=== PATIENT | female | born 1960 | race Caucasian/White ===

== ENCOUNTER 2021-12-01 21:51 | Emergency (ER) | payer OTHER ==
[2021-12-01 22:19] VITALS: BP 115/70; PULSE 84; RESP 18; TEMP 98
--- NOTE | 2021-12-02 02:46 | ED ---
Psych HPI - General Source: patient, RN notes reviewed, old records reviewed Mode of arrival: ambulatory - History of Present Illness MD Complaint: suicidal ideation, feels depressed, altered mental status -: unknown Associated Psychiatric Symptoms: racing thoughts, auditory hallucinations Quality: getting worse Improves With: therapy Associated Symptoms: confusion Treatments Prior to Arrival: placed on mental health hold If Self Harm: admits thoughts of self harm <Aniket Novak - Last Filed: 12/02/21 02:44> - General Limitations: no limitations <Richmond Amato - Last Filed: 12/03/21 06:21> - General Chief Complaint: Psychiatric Symptoms Stated Complaint: Behavioral Issues Time Seen by Provider: 12/02/21 02:29 - History of Present Illness Initial Comments: 89 female DF for evaluation patient presents today for psychiatric evaluation. Patient is being combative with staff not reliable (Aniket Novak) This a 61-year-old female presents emergency department for psychiatric evaluation. Patient is from jail she states she's been at the jail for 2-3 months. Patient states his staff was making her angry states that she became "pissed off" states that she was yelling but was not aggressive towards staff. Patient denies being homicidal or suicidal as illicit drug use no alcohol abuse. Patient states that she has been here for several hours is unsure why she is here that she does not need psychiatric treatment. Patient has no physical complaints. (Richmond Amato) - Related Data Home Medications Medication Instructions Recorded Confirmed ARIPiprazole [Abilify] 10 mg PO BID@06,199912/02/21 12/02/21 Benztropine Mesylate [Cogentin] 1 mg PO BID@06,199912/02/21 12/02/21 FLUoxetine HCL [PROzac] 20 mg PO DAILY@59912/02/21 12/02/21 Levothyroxine Sodium [Synthroid] 175 mcg PO DAILY@59912/02/21 12/02/21 Rivaroxaban [Xarelto] 20 mg PO DAILY@17012/02/21 12/02/21 chlorproMAZINE [Thorazine] 100 mg PO HS@199912/02/21 12/02/21 traZODone HCL [Desyrel] 25 mg PO HS@199912/02/21 12/02/21 Allergies Allergy/AdvReac Type Severity Reaction Status Date / Time Sulfa (Sulfonamide Allergy Unknown Verified 12/02/21 11:32 Antibiotics) Review of Systems ROS Other: All systems not noted in ROS Statement are negative. <Aniket Novak - Last Filed: 12/02/21 02:44> ROS Other: All systems not noted in ROS Statement are negative. <Richmond Amato - Last Filed: 12/03/21 06:21> ROS Statement: Those systems with pertinent positive or pertinent negative responses have been documented in the HPI. Past Medical History Past Medical History: Unable to Obtain History of Any Multi-Drug Resistant Organisms: Unobtainable Past Surgical History: Unable to Obtain Past Psychological History: Unable to Obtain Smoking Status: Unknown if ever smoked Past Alcohol Use History: Unable to Obtain Past Drug Use History: Unable to Obtain <Aniket Novak - Last Filed: 12/02/21 02:44> General Exam Limitations: no limitations General appearance: alert, in no apparent distress Head exam: Present: atraumatic, normocephalic, normal inspection Eye exam: Present: normal appearance, PERRL, EOMI. Absent: scleral icterus, conjunctival injection, periorbital swelling ENT exam: Present: normal exam, mucous membranes moist Neck exam: Present: normal inspection. Absent: tenderness, meningismus, lymphadenopathy Respiratory exam: Present: normal lung sounds bilaterally. Absent: respiratory distress, wheezes, rales, rhonchi, stridor Cardiovascular Exam: Present: regular rate, normal rhythm, normal heart sounds. Absent: systolic murmur, diastolic murmur, rubs, gallop, clicks GI/Abdominal exam: Present: soft, normal bowel sounds. Absent: distended, tenderness, guarding, rebound, rigid Extremities exam: Present: normal inspection, full ROM, normal capillary refill. Absent: tenderness, pedal edema, joint swelling, calf tenderness Back exam: Present: normal inspection Neurological exam: Present: alert, oriented X3, CN II-XII intact Psychiatric exam: Present: normal affect, normal mood Skin exam: Present: warm, dry, intact, normal color. Absent: rash <Aniket Novak - Last Filed: 12/02/21 02:44> General appearance: alert, in no apparent distress Head exam: Present: atraumatic, normocephalic, normal inspection Eye exam: Present: normal appearance, PERRL, EOMI. Absent: scleral icterus, conjunctival injection, periorbital swelling ENT exam: Present: mucous membranes moist. Absent: normal exam, normal oropharynx (No dentition) Neck exam: Present: normal inspection. Absent: tenderness, meningismus, lymphadenopathy Respiratory exam: Present: normal lung sounds bilaterally. Absent: respiratory distress, wheezes, rales, rhonchi, stridor Cardiovascular Exam: Present: regular rate, normal rhythm, normal heart sounds. Absent: systolic murmur, diastolic murmur, rubs, gallop, clicks GI/Abdominal exam: Present: soft, normal bowel sounds. Absent: distended, tenderness, guarding, rebound, rigid Neurological exam: Present: alert, oriented X3, CN II-XII intact Psychiatric exam: Present: normal affect, normal mood Skin exam: Present: warm, dry, intact, normal color. Absent: rash <Richmond Amato - Last Filed: 12/03/21 06:21> Course <Aniket Novak - Last Filed: 12/02/21 02:44> Vital Signs 12/01/21 22:16 Temperature 98 F Pulse Rate 84 Respiratory 18 Rate Blood Pressure 115/70 O2 Sat by Pulse 97 Oximetry - Reevaluation(s) Reevaluation #1: 12/02/21 02:45 Attic record is reviewed 12/02/21 02:45 Medical clear for psychiatric evaluation (Aniket Novak) Medical Decision Making <Richmond Amato - Last Filed: 12/03/21 06:21> - Medical Decision Making Patient was evaluated by EPS will be discharged in stable condition patient is not suicidal or homicidal. Patient had an outburst anger and which she admits to that she was angry at staff. (Richmond Amato) Disposition <Aniket Novak - Last Filed: 12/02/21 02:44> Is patient prescribed a controlled substance at d/c from ED?: No <Richmond Amato - Last Filed: 12/03/21 06:21> Clinical Impression: Outbursts of anger Disposition: HOME SELF-CARE Condition: Stable Additional Instructions: Please return to the Emergency Department if symptoms worsen or any other concerns. Referrals: None,Stated [Primary Care Provider] - 1-2 days
== END 2021-12-02 04:15 | disposition home or self-care (01) ==
LOC: EEVIPCON 21:51 → EC 21:51
DX: R45.4 Irritability and anger (principal); Z88.2 Allergy status to sulfonamides
CPT/HCPCS: 82075; 99285

== ENCOUNTER 2021-12-05 14:36 | Emergency (ER) | payer MEDICARE, OTHER ==
[2021-12-05 15:00] VITALS: BP 144/76; PULSE 61; RESP 18; TEMP 97.6
--- NOTE | 2021-12-05 15:06 | ED ---
General Adult HPI - General Chief complaint: Chest Pain Stated complaint: chest pain Time Seen by Provider: 12/05/21 14:47 Source: patient, EMS Mode of arrival: EMS Limitations: altered mental status - History of Present Illness Initial comments: Dictation was produced using [employer] dictation software. please excuse any grammatical, word or spelling errors. Chief Complaint: 61-year-old female presents to the emergency room for chest pain History of Present Illness: 61-year-old female she has past medical history of mental delay. She currently resides at a shelter. Patient states that she is here in emergency department for chest pain. She states that it's through her entire chest. She states it is sharp it's worse when she coughs takes a deep breath and laughs. Patient has any shortness of breath. Patient does take an echo aggravation medications for unknown cause. Patient is a poor historian. Denies any fever, chills or night sweats. She reports that she has had this symptoms for several months. She denies that she is having a heart attack. The ROS documented in this emergency department record has been reviewed and confirmed by me. Those systems with pertinent positive or negative responses have been documented in the HPI. All other systems are other negative and/or noncontributory. PHYSICAL EXAM: General Impression: Alert and oriented x3, not in acute distress HEENT: Normocephalic atraumatic, extra-ocular movements intact, pupils equal and reactive to light bilaterally, mucous membranes moist. Cardiovascular: Heart regular rate and rhythm Chest: Able to complete full sentences, no retractions, no tachypnea Abdomen: abdomen soft, non-tender, non-distended, no organomegaly Musculoskeletal: Pulses present and equal in all extremities, no peripheral edema Motor: no focal deficits noted Neurological: CN II-XII grossly intact, no focal motor or sensory deficits noted Skin: Intact with no visualized rashes Psych: Normal affect and mood ED course: 61-year-old well-appearing female presents emergency department for chronic atypical chest pain. Signs upon arrival are within acceptable limits. Patient is a poor historian. She presents with atypical chest pain. EKG does not show any signs of ischemia or infarction. She does have a history of anticoagulation medication use. Unclear why she takes this medication. According to transfer documentation from shelter she stopped taking this medication preparation for surgery in 4 days. Patient is recent seen in emergency department 3 days ago for violent and aggressive behavior. She was seen by EPS discharge back to the shelter. Laboratory evaluation obtained. CBC, metabolic panel, troponin is negative. Chest x-ray is shows interstitial density. Patient does not have any symptoms of cough or shortness of breath. Patient observed in emergency department for 1 hour 30 minutes. Reevaluated at bedside at 4:00 PM found with stable medical condition. Patient's pain is atypical she'll be discharged advised follow-up with primary care doctor. EKG interpretation: Ventricular rate 58, sinus bradycardia,. Interval to 20, QS 95, QTC 4:15. No NE prolongation, no QTC prolongation, no ST or T-wave changes noted. Overall, this EKG is unremarkable - Related Data Home Medications Medication Instructions Recorded Confirmed ARIPiprazole [Abilify] 10 mg PO BID@0600,199912/02/21 12/05/21 Benztropine Mesylate [Cogentin] 1 mg PO BID@0600,199912/02/21 12/05/21 FLUoxetine HCL [PROzac] 20 mg PO DAILY@0612/02/21 12/05/21 Levothyroxine Sodium [Synthroid] 175 mcg PO DAILY@0600 12/02/21 12/05/21 Rivaroxaban [Xarelto] 20 mg PO DAILY@1700 12/02/21 12/05/21 chlorproMAZINE [Thorazine] 100 mg PO HS@199912/02/21 12/05/21 traZODone HCL [Desyrel] 25 mg PO HS@199912/02/21 12/05/21 Allergies Allergy/AdvReac Type Severity Reaction Status Date / Time Sulfa (Sulfonamide Allergy Unknown Verified 12/05/21 15:50 Antibiotics) Review of Systems ROS Statement: Those systems with pertinent positive or pertinent negative responses have been documented in the HPI. ROS Other: All systems not noted in ROS Statement are negative. Past Medical History Past Medical History: Unable to Obtain History of Any Multi-Drug Resistant Organisms: Unobtainable Past Surgical History: Unable to Obtain Past Psychological History: Unable to Obtain Smoking Status: Unknown if ever smoked Past Alcohol Use History: Unable to Obtain Past Drug Use History: Unable to Obtain General Exam Limitations: altered mental status Course Vital Signs 12/05/21 14:41 Temperature 97.6 F Pulse Rate 61 Respiratory 18 Rate Blood Pressure 144/76 O2 Sat by Pulse 96 Oximetry Medical Decision Making - Lab Data Result diagrams: 12/05/21 15:02 12/05/21 15:02 Lab Results 12/05/21 12/05/21 12/05/21 Range/Units 15:02 15:02 15:02 WBC 5.4 (3.8-10.6) k/uL RBC 4.47 (3.80-5.40) m/uL Hgb 12.5 (11.4-16.0) gm/dL Hct 41.6 (34.0-46.0) % MCV 93.2 (80.0-100.0) fL MCH 28.0 (25.0-35.0) pg MCHC 30.1 L (31.0-37.0) g/dL RDW 14.2 (11.5-15.5) % Plt Count 263 (150-450) k/uL MPV 7.9 Neutrophils % 64 % Lymphocytes % 22 % Monocytes % 8 % Eosinophils % 3 % Basophils % 1 % Neutrophils # 3.4 (1.3-7.7) k/uL Lymphocytes # 1.2 (1.0-4.8) k/uL Monocytes # 0.4 (0-1.0) k/uL Eosinophils # 0.2 (0-0.7) k/uL Basophils # 0.1 (0-0.2) k/uL Hypochromasia Slight Sodium 141 (137-145) mmol/L Potassium 3.7 (3.5-5.1) mmol/L Chloride 104 (98-107) mmol/L Carbon Dioxide 28 (22-30) mmol/L Anion Gap 9 mmol/L BUN 21 H (7-17) mg/dL Creatinine 0.86 (0.52-1.04) mg/dL Est GFR (CKD-EPI)AfAm 86 (>60 ml/min/1.73 sqM) Est GFR (CKD-EPI)NonAf 75 (>60 ml/min/1.73 sqM) Glucose 96 (74-99) mg/dL Calcium 9.4 (8.4-10.2) mg/dL Troponin I <0.012 (0.000-0.034) ng/mL Disposition Clinical Impression: Chest pain Disposition: HOME SELF-CARE Condition: Good Instructions (If sedation given, give patient instructions): Chest Pain (ED) Is patient prescribed a controlled substance at d/c from ED?: No Referrals: None,Stated [Primary Care Provider] - 1-2 days Time of Disposition: 16:03
[2021-12-05 15:25] LABS: Basophils # (A) 0.1 k/uL (0-0.2); Basophils % (A) 1 %; Eosinophils # (A) 0.2 k/uL (0-0.7); Eosinophils % (A) 3 %; HCT 41.6 % (34.0-46.0); HGB 12.5 gm/dL (11.4-16.0); Hypochromasia Slight; Lymphocytes # (A) 1.2 k/uL (1.0-4.8); Lymphocytes % (A) 22 %; MCHC 30.1 g/dL (31.0-37.0); MCV 93.2 fL (80.0-100.0); Mean Platelet Volume 7.9; Monocytes # (A) 0.4 k/uL (0-1.0); Monocytes % (A) 8 %; Neutrophils # (A) 3.4 k/uL (1.3-7.7); Neutrophils % (A) 64 %; Platelet Count 263 k/uL (150-450); RBC 4.47 m/uL (3.80-5.40); RDW 14.2 % (11.5-15.5); WBC 5.4 k/uL (3.8-10.6)
[2021-12-05 15:39] LABS: Calcium 9.4 mg/dL (8.4-10.2); Potassium 3.7 mmol/L (3.5-5.1)
--- NOTE | 2021-12-05 15:49 | XR ---
EXAMINATION TYPE: XR chest 2V DATE OF EXAM: 12/05/2021 COMPARISON: None HISTORY: 61-year-old female with chest pain TECHNIQUE: AP and lateral views FINDINGS: Heart upper limits of normal in size. Diffuse interstitial prominence and interstitial density. No fr ank consolidation or pleural effusion. IMPRESSION: Interstitial density. Correlate for possible bronchitis, chronic asthma, or atypical pneumonias.
[2021-12-05] MEDS ORDERED: Acetaminophen-Codeine 300-30mg TAB PO STA (16:03)
== END 2021-12-05 20:50 | disposition home or self-care (01) ==
LOC: EC 14:36
DX: R07.89 Other chest pain (principal); Z88.2 Allergy status to sulfonamides
CPT/HCPCS: 36415; 71046; 80048; 84484; 85025; 93005; 99285